=== PATIENT | male | born 1950 | race Caucasian/White ===

== ENCOUNTER 2022-01-23 09:02 | Emergency (ER) | payer OTHER, MEDICARE, BC ==
[~2022-01-23 09:02] MED LIST: ALTOPREV40 MG PO; ASPIRIN E.C. 8181 MG PO; AZULFIDINE500 MG/TAB PO; CIPRO 500MG TA500 MG PO; FLAGYL500 MG PO; FLEXERIL10 MG PO; GLUCOPHAGE500 MG/TAB PO; LISINOPRIL/HCTZ1 TA2 PO; NIACIN TIME-RE500 MG PO; PERCOCET 325 MG1 TA2 PO; PREVALITE4 GM/5.5 G PO; PRINIVIL20 MG PO; PRINZIDE 12.5 M1 TA1 PO; TRILIPIX 135MG PO; TYLENOL EXTRA500 M1 PO; ULTRAM 50MG TAB50 MG PO; VOLTAREN 50MG T50 MG PO; [UNRECOGNIZED DRUG - OTHER] PO
== END 2022-01-23 10:20 | disposition left against medical advice (07) ==
LOC: COL.ER 09:02
DX: R69 Illness, unspecified (principal)

== ENCOUNTER 2022-01-28 12:35 | Emergency (ER) | payer OTHER, MEDICARE, BC ==
[~2022-01-28] VITALS: Ht 185.4 cm; Wt 94.1 kg
[2022-01-28 12:49] VITALS: TEMP 98
[2022-01-28 13:35] LABS: BASO % 0.5 % (0.0-2.0); EOS # 0.1 K/mm3 (0.0-0.7); EOS % 1.1 % (0.0-4.0); GRAN # 4.3 K/mm3 (1.4-6.5); GRAN % 56.4 % (42.2-75.2); HEMOGLOBIN 11.6 g/dl (13.5-18.0); LYMPH # 2.5 K/mm3 (1.2-3.4); LYMPH % 33.4 % (20.0-51.0); MEAN CELL VOLUME 91 fl (80.0-100.0); MEAN CORPUSCULAR HEMOGLOBIN 30 pg (27-31); MEAN CORPUSCULAR HGB CONC 33 g/dl (33.0-37.0); MEAN PLATELET VOLUME 9.9 fl (7.4-10.4); MONO # 0.6 K/mm3 (0.1-0.6); MONO % 8.1 % (1.7-9.3); PLATELET COUNT 246 K/mm3 (130-400); RED BLOOD COUNT 3.82 M/mm3 (4.20-5.60); REDCELL DISTRIBUTION WIDTH-CV 13.8 % (11.5-14.5)
[2022-01-28 13:39] LABS: HEMATOCRIT 34.9 % (42.0-52.0)
[2022-01-28 13:48] LABS: PROTHROMBIN TIME 11.4 SECONDS (9.7-12.8)
[2022-01-28 13:49] LABS: ALBUMIN 3.9 gm/dL (3.4-4.8); BILIRUBIN,TOTAL 0.3 mg/dL (0.2-1.2); CALCIUM 10.5 mg/dL (8.4-10.2); CREATININE, serum 1.58 mg/dL (0.72-1.25); POTASSIUM 3.9 mmol/L (3.5-4.5); TOTAL PROTEIN 6.7 gm/dL (6.2-8.1)
[2022-01-28 13:50] LABS: PARTIAL THROMBOPLASTIN TIME 27.2 SECONDS (26.0-37.0)
[2022-01-28 14:51] VITALS: BP 143/61; PULSE 94
== END 2022-01-28 14:52 | disposition home or self-care (01) ==
LOC: COL.ER 12:35
PROVIDERS: Emergency Medicine
DX: K92.2 Gastrointestinal hemorrhage, unspecified (principal); N28.9 Disorder of kidney and ureter, unspecified
CPT/HCPCS: J7120